=== PATIENT | female | born 2000 | race Caucasian/White ===

== ENCOUNTER 2019-04-29 21:51 | Emergency (ER) | payer BC, OTHER ==
[~2019-04-29] VITALS: Ht 167.6 cm; Wt 70.5 kg
[~2019-04-29 21:51] MED LIST: BEN25 PO; FAMO-96 PO; IBUP-1542 PO
[2019-04-29 22:01] VITALS: Ht 167.6 cm; Wt 70.5 kg
[2019-04-30] MEDS ORDERED: DEXAMETHASONE 10 MG/ML 1 ML INJ IM ONE (01:30)
[2019-04-30] MEDS ORDERED: DIPHENHYDRAMINE 25 MG CAP PO ONE (01:30)
[2019-04-30] MEDS ORDERED: FAMOTIDINE 20 MG TAB PO ONE (01:30)
[2019-04-30 02:20] VITALS: BP 122/72; PULSE 71; RESP 18
== END 2019-04-30 02:20 | disposition home or self-care (01) ==
LOC: FTE 21:51
DX: S83.004A Unspecified dislocation of right patella, initial encounter (principal); M25.061 Hemarthrosis, right knee; W01.0XXA Fall on same level from slipping, tripping and stumbling without subsequent striking against object, initial encounter; Y92.9 Unspecified place or not applicable
CPT/HCPCS: 29505; 73562; 96372; 99284; J1100